=== PATIENT | female | born 1950 | race Caucasian/White ===

== ENCOUNTER → 2021-01-30 | Outpatient (CLI) | payer MEDICARE, OTHER ==
[~2021-01-30] MED LIST: ASPIR-LOW81 MG PO
== END ==
LOC: EXRD 10:01
DX: M81.0 Age-related osteoporosis without current pathological fracture (principal)
CPT/HCPCS: 77080

== ENCOUNTER → 2021-02-03 | Outpatient (CLI) | payer MEDICARE, OTHER | LOC: KOH-I 11:03 | DX: M47.26 Other spondylosis with radiculopathy, lumbar region (principal); M51.16 Intervertebral disc disorders with radiculopathy, lumbar region | CPT/HCPCS: 72148 ==

== ENCOUNTER 2021-04-01 10:43 | Emergency (ER) | payer MEDICARE, OTHER ==
[2021-04-01 13:52] LABS: RED BLOOD COUNT 5.06 M/UL (4.00-5.10); WHITE BLOOD COUNT 11.2 K/UL (4.5-11.0)
[2021-04-01 14:17] LABS: BUN/CREATININE RATIO 12 (0-10)
== END 2021-04-01 17:35 | disposition home or self-care (01) ==
LOC: ER1 10:43
PROVIDERS: Emergency Medicine
DX: R10.11 Right upper quadrant pain (principal); E11.9 Type 2 diabetes mellitus without complications; E78.5 Hyperlipidemia, unspecified; F17.200 Nicotine dependence, unspecified, uncomplicated; Z90.49 Acquired absence of other specified parts of digestive tract; Z90.711 Acquired absence of uterus with remaining cervical stump; Z88.0 Allergy status to penicillin; Z88.2 Allergy status to sulfonamides
CPT/HCPCS: 80053; 81001; 82550; 82553; 83605; 83690; 83874; 84484; 85025; 93005; 96374; 96375; 99284; J2270; J2405; J7030